=== PATIENT | female | born 1950 | race Caucasian/White ===

== ENCOUNTER 2016-07-27 18:47 | Emergency (ER) | payer OTHER ==
--- NOTE | 2016-07-27 19:28 | C.PDOC ---
History Of Present Illness Patient presents to the ED with complaints of dull, aching chest pain that began yesterday. The patient was seen 2-3 weeks ago for similar symptoms. Patient denies vomiting, diarrhea, or any other complaints at this time. Time Seen by Provider: 07/27/16 19:28 Chief Complaint (Nursing): Chest Pain History Per: Patient History/Exam Limitations: no limitations Onset/Duration Of Symptoms: Hrs Current Symptoms Are (Timing): Still Present Severity: Mild Pain Scale Rating Of: 4 Quality: Dull, Aching Past Medical History Reviewed: Historical Data, Nursing Documentation, Vital Signs Vital Signs: Last Vital Signs Temp 98.1 F 07/27/16 18:53 Pulse 63 07/27/16 21:17 Resp 18 07/27/16 21:17 BP 138/68 07/27/16 21:17 Pulse Ox 100 07/27/16 21:17 - Medical History PMH: Depression, Gastritis, HTN, Hypothyroidism Family History: States: Unknown Family Hx - Social History Hx Alcohol Use: No Hx Substance Use: No - Immunization History Hx Tetanus Toxoid Vaccination: No Hx Influenza Vaccination: Yes Hx Pneumococcal Vaccination: No Review Of Systems Constitutional: Negative for: Fever, Chills, Sweats Cardiovascular: Positive for: Chest Pain (dull, aching ) Respiratory: Negative for: Cough, Shortness of Breath Gastrointestinal: Negative for: Nausea, Vomiting, Abdominal Pain, Diarrhea Physical Exam - Physical Exam Appears: Non-toxic, No Acute Distress Skin: Warm, Dry Neck: Normal ROM, Supple Cardiovascular: Rhythm Regular Respiratory: No Accessory Muscle Use, No Rales, No Rhonchi, No Stridor, No Wheezing Gastrointestinal/Abdominal: Soft, No Tenderness, No Distention, No Guarding, No Rebound Extremity: Normal ROM, No Tenderness Neurological/Psych: Oriented x3 ED Course And Treatment - Laboratory Results Result Diagrams: 07/27/16 20:04 07/27/16 20:04 ECG: Interpreted By Me, Viewed By Me ECG Rhythm: Sinus Rhythm (68), Nonspecific Changes O2 Sat by Pulse Oximetry: 97 Pulse Ox Interpretation: Normal - Radiology CXR: Interpreted by Me, Viewed By Me CXR Interpretation: No: Infiltrates, Fracture, Pnemothorax Progress Note: cardiac work up, asa. I considered the following diagnoses: acute coronary syndrome, pulmonary embolism, lower respiratory infection, aortic dissection/aneurysm, pneumothorax, pericarditis, esophagitis/GERD, zoster and esophageal rupture but found them to be unlikely based on the history , physical exam, and diagnostics. My conclusions regarding the unlikely diagnoses were based on: the absence of significant EKG abnormalities, the lack of suggestive x-ray findings, the absence of significant abnormalities on cardiac monitoring, the absence of asymmetric pulses. Pt feels better and wants to go home Reevaluation Time: 21:48 Reassessment Condition: Improved Medical Decision Making Medical Decision Making: Upon provider reevaluation patient is feeling better, is medically stable, and requires no further treatment in the ED at this time. Patient will be discharged home with Rx for naprosyn and phenergan with codeine . Counseling was provided and all questions were answered regarding diagnosis and need for follow up with the referred clinic. There is agreement to discharge plan. Return if symptoms persist or worsen. Disposition Counseled Patient/Family Regarding: Studies Performed, Diagnosis, Need For Followup - Disposition Referrals: [facility] at [facility] [Outside] Disposition: HOME/ ROUTINE Disposition Time: 19:28 Condition: FAIR Prescriptions: Naproxen [Naprosyn] 1 tab PO BID PRN #25 tab PRN Reason: Pain Promethazine/Codeine [Codeine/Promethazine 10 MG/5 Ml-6.25 MG/5 Ml] 5 ml PO TID #150 ud Instructions: Costochondritis (ED) Print Language: SWEDISH - Clinical Impression Clinical Impression: Costochondral chest pain - Scribe Statement The provider has reviewed the documentation as recorded by the Alvertoibtelly Pineda All medical record entries made by the Alvertoibe were at my direction and personally dictated by me. I have reviewed the chart and agree that the record accurately reflects my personal performance of the history, physical exam, medical decision making, and the department course for this patient. I have also personally directed, reviewed, and agree with the discharge instructions and disposition.
[2016-07-27] MEDS ORDERED: Aspirin 325 mg EC Tablets PO STA (19:31)
[2016-07-27] MEDS ORDERED: Aspirin 325 mg EC Tablets PO ONE (19:35)
[2016-07-27 20:08] LABS: BASO % 0.7 % (0.0-2.0); EOS # 0.1 K/uL (0.0-0.7); EOS % 2.3 % (0.0-4.0); HEMATOCRIT 38.9 % (34.0-47.0); LYMPH # 1.9 K/uL (1.0-4.3); LYMPH % 33.8 % (20.0-40.0); MEAN CELL VOLUME 83.7 fL (81.0-99.0); MEAN CORPUSCULAR HEMOGLOBIN 27.4 pg (27.0-31.0); MEAN CORPUSCULAR HGB CONC 32.7 g/dL (33.0-37.0); MEAN PLATELET VOLUME 9.7 fL (7.2-11.7); MONO # 0.4 K/uL (0.0-0.8); MONO % 7.1 % (0.0-10.0); NRBC % 0.1 % (0.0-2.0); RED CELL DISTRIBUTION WIDTH 14.4 % (11.5-14.5); WHITE BLOOD COUNT 5.7 K/uL (4.8-10.8)
[2016-07-27 20:11] LABS: RBC URINE < 1 /hpf (0-3); URINE BILIRUBIN NEGATIVE (NEGATIVE); URINE BLOOD NEGATIVE (NEGATIVE); URINE COLOR Colorless (YELLOW); URINE GLUCOSE (UA) NORMAL (Normal); URINE KETONE NEGATIVE (NEGATIVE); URINE LEUKOCYTE ESTERASE NEG Leu/uL (Negative); URINE PROTEIN NEGATIVE (NEGATIVE); URINE UROBILINOGEN NORMAL mg/dL (0.2-1.0); WBC URINE 1 /hpf (0-5)
[2016-07-27 20:15] LABS: CHLORIDE 102 mmol/L (98-107); INR 1.9
[2016-07-27 20:16] LABS: POTASSIUM 4.2 mmol/L (3.6-5.2); SODIUM 140 mmol/L (132-148)
[2016-07-27 20:18] LABS: ALB/GLOB RATIO 1.5 (1.0-2.1); AST/SGOT 24 U/L (14-36); BILIRUBIN,TOTAL 0.5 mg/dL (0.2-1.3); CARBON DIOXIDE 25 mmol/L (22-30); GFR AFRICAN-AMERICAN > 60; TOTAL PROTEIN 7.8 g/dL (6.3-8.3)
[2016-07-27 20:19] LABS: ALKALINE PHOSPHATASE 92 U/L (38-126); ALT/SGPT 19 U/L (9-52); BLOOD UREA NITROGEN 11 mg/dL (7-17); GLUCOSE,RANDOM 94 mg/dL (65-105)
[2016-07-27 21:18] VITALS: RESP 18
[2016-07-27 22:09] VITALS: BP 142/73; PULSE 62; TEMP 97.9; O2SAT 99
--- NOTE | 2016-07-28 08:22 | RAD ---
PROCEDURE: CHEST RADIOGRAPH, 1 VIEW HISTORY: chest pain COMPARISON: 06/18/2016 FINDINGS: LUNGS: Mild venous congestion. PLEURA: No pneumothorax or pleural fluid seen. CARDIOVASCULAR: Calcification at the aortic knob. OSSEOUS STRUCTURES: Calcific tendinopathy of the left proximal humerus. VISUALIZED UPPER ABDOMEN: Normal. OTHER FINDINGS: None. IMPRESSION: Mild venous congestion.
--- NOTE | 2016-07-29 07:57 | CARD ---
APPROVED REPORT EKG Measurement Heart [id number] CO 134P7 [id number] <Conclusion> Normal sinus rhythm Nonspecific ST abnormality Abnormal ECG
== END 2016-07-27 22:09 | disposition home or self-care (01) ==
LOC: C.ER 18:47
DX: R07.89 Other chest pain (principal)
CPT/HCPCS: 71010; 80053; 81001; 84484; 85025; 85610; 85730; 93005; 96374; 99285; J1885

== ENCOUNTER 2016-12-22 12:25 | Emergency (ER) | payer OTHER ==
[2016-12-22 12:25] VITALS: BMI 29.0
[2016-12-22 12:37] VITALS: BP 106/63; PULSE 61; TEMP 98.6; O2SAT 98
[2016-12-22 13:16] VITALS: RESP 18
--- NOTE | 2016-12-22 13:24 | C.PDOC ---
History Of Present Illness 66 y/o female, with PMHx of HTN, presents to ED for evaluation of mild frontal headache for the last 3 days. Pt states her sugar level was mildly high at home. (+) nausea. Otherwise, denies any vomiting, visual changes, dizziness, or other complaints at this time. Time Seen by Provider: 12/22/16 13:00 Chief Complaint (Nursing): Headache History Per: Patient History/Exam Limitations: no limitations Onset/Duration Of Symptoms: Days (3) Current Symptoms Are (Timing): Still Present Quality: Aching Preceeding Symptoms: denies: Visual Disturbances, Known Migraine Symptoms Associated Symptoms: denies: Photophobia, Blurred Vision, Nausea, Vomiting, Extremity Weakness Recent travel outside of the [place]: No Additional History Per: Patient Past Medical History Reviewed: Historical Data, Nursing Documentation, Vital Signs Vital Signs: Last Vital Signs Temp 98.6 F 12/22/16 12:35 Pulse 61 12/22/16 12:35 Resp 18 12/22/16 13:15 BP 106/63 12/22/16 12:35 Pulse Ox 98 12/22/16 13:26 - Medical History PMH: Depression, Gastritis, HTN, Hypothyroidism Family History: States: Unknown Family Hx - Social History Hx Alcohol Use: No Hx Substance Use: No - Immunization History Hx Tetanus Toxoid Vaccination: No Hx Influenza Vaccination: Yes Hx Pneumococcal Vaccination: No Review Of Systems Except As Marked, All Systems Reviewed And Found Negative. Constitutional: Negative for: Fever, Chills Eyes: Negative for: Vision Change Cardiovascular: Negative for: Chest Pain, Palpitations, Light Headedness Respiratory: Negative for: Cough, Shortness of Breath Gastrointestinal: Positive for: Nausea. Negative for: Vomiting, Abdominal Pain Musculoskeletal: Negative for: Neck Pain Neurological: Positive for: Headache. Negative for: Weakness, Numbness, Change in Speech, Dizziness Physical Exam - Physical Exam Appears: Non-toxic, No Acute Distress Skin: Normal Color, Warm, Dry Head: Atraumatic, Normacephalic Eye(s): bilateral: Normal Inspection Neck: Normal, Normal ROM, Supple Chest: Symmetrical Cardiovascular: Rhythm Regular, No Murmur Respiratory: Normal Breath Sounds, No Rales, No Rhonchi, No Wheezing Gastrointestinal/Abdominal: Soft, No Tenderness Extremity: Bilateral: Atraumatic, Normal ROM Neurological/Psych: Oriented x3, Normal Speech, Normal Cognition ED Course And Treatment O2 Sat by Pulse Oximetry: 98 (on RA) Pulse Ox Interpretation: Normal Medical Decision Making Medical Decision Making: On assessment, patient denies any type of work up. Pt eloped from the ER several minutes later after assessment. Disposition - Disposition Disposition: ELOPEMENT - ER ONLY Disposition Time: 01:30 Condition: UNKNOWN Forms: [facility] (Cymro) - Clinical Impression Clinical Impression: Headache - Scribe Statement The provider has reviewed the documentation as recorded by the Scribtelly Lazo All medical record entries made by the Alvertoibtelly were at my direction and personally dictated by me. I have reviewed the chart and agree that the record accurately reflects my personal performance of the history, physical exam, medical decision making, and the department course for this patient. I have also personally directed, reviewed, and agree with the discharge instructions and disposition.
== END 2016-12-22 13:16 | disposition left against medical advice (07) ==
LOC: C.ER 12:25
DX: R51 Headache (principal)

== ENCOUNTER 2017-01-20 12:33 | Emergency (ER) | payer OTHER, SELFPAY ==
[2017-01-20 12:33] VITALS: BMI 29.0
[2017-01-20 12:59] VITALS: RESP 18
--- NOTE | 2017-01-20 14:14 | C.PDOC ---
History Of Present Illness 66 yo female presents to ED for evaluation of a pruritic rash starting yesterday. She reports taking Benadryl yesterday with no relief. Patient denies any new exposures to allergens such as foods, clothing, creams/shampoos, etc. She states she was with her daughter yesterday who has a lot of cats, but she has been in that environment before without a reaction. She denies fever , shortness of breath, palpitations, sensation of throat closing up, drooling. Time Seen by Provider: 01/20/17 13:05 Chief Complaint (Nursing): Abnormal Skin Integrity History Per: Patient History/Exam Limitations: no limitations Onset/Duration Of Symptoms: Days (1) Current Symptoms Are (Timing): Still Present Quality Of Symptoms: Itching Severity: Mild Past Medical History Reviewed: Historical Data, Nursing Documentation, Vital Signs Vital Signs: Last Vital Signs Temp 98.4 F 01/20/17 14:53 Pulse 71 01/20/17 14:53 Resp 18 01/20/17 14:53 BP 114/69 01/20/17 14:53 Pulse Ox 99 01/20/17 14:53 - Medical History PMH: Depression, Gastritis, HTN, Hypercholesterolemia, Hypothyroidism Surgical History: No Surg Hx Family History: States: No Known Family Hx - Social History Hx Alcohol Use: No Hx Substance Use: No - Immunization History Hx Tetanus Toxoid Vaccination: No Hx Influenza Vaccination: Yes Hx Pneumococcal Vaccination: No Review Of Systems Except As Marked, All Systems Reviewed And Found Negative. Constitutional: Negative for: Fever Cardiovascular: Negative for: Chest Pain, Palpitations Respiratory: Negative for: Cough, Shortness of Breath Gastrointestinal: Negative for: Nausea, Vomiting, Abdominal Pain, Diarrhea Genitourinary: Negative for: Dysuria, Hematuria Skin: Positive for: Rash Physical Exam - Physical Exam Appears: Well, Non-toxic, No Acute Distress Skin: Rash (diffuse, raised urticarial rash, sparing palms and soles) Eye(s): bilateral: Normal Inspection Oral Mucosa: Moist Tongue: Normal Appearing, No Swelling, No Lesions Lips: Normal Appearing, No Swelling Throat: Normal, No Erythema, No Exudate, No Drooling Neck: Normal, Supple Cardiovascular: Rhythm Regular Respiratory: Normal Breath Sounds, No Rales, No Rhonchi, No Wheezing Neurological/Psych: Oriented x3 ED Course And Treatment O2 Sat by Pulse Oximetry: 99 (RA) Pulse Ox Interpretation: Normal Progress Note: Patient given PO Prednisone, Pepcid and Benadryl. Reevaluation Time: 14:40 Reassessment Condition: Improved (Patient reassessed, states she is feeling better and rash has improved. Rxs for prednisone, tessalon (patient requesting cough medication) and benadryl. She was instructed to follow up with PMD/ clinic in 1-2 days, and she understands she should return to ED if symptoms worsen.) Disposition Counseled Patient/Family Regarding: Studies Performed, Diagnosis, Need For Followup, Rx Given - Disposition Referrals: [facility] [Outside] Disposition: HOME/ ROUTINE Disposition Time: 14:40 Condition: STABLE Additional Instructions: SEGUIMIENTO CON COBIAN MDICO EN 1-2 CABRERA USE MEDICAMENTOS SEGN LO DIRIGIDO DEVUELVA A LA FERNANDO DE EMERGENCIA SI LOS SNTOMAS EMPEORARAN Prescriptions: Benzonatate [Tessalon Perles] 100 mg PO BID PRN #15 sgl PRN Reason: Cough DiphenhydrAMINE [Benadryl] 25 mg PO Q6 PRN #20 cap PRN Reason: Itching / Pruritus predniSONE [predniSONE Tab] 40 mg PO DAILY #8 tab Instructions: Urticaria (ED) Forms: [facility] [facility] (Canadian) Print Language: INDONESIAN - Clinical Impression Clinical Impression: Urticaria, Allergic reaction - Scribe Statement The provider has reviewed the documentation as recorded by the Grady Jones Provider Attestation: All medical record entries made by the Alvertoibe were at my direction and personally dictated by me. I have reviewed the chart and agree that the record accurately reflects my personal performance of the history, physical exam, medical decision making, and the department course for this patient. I have also personally directed, reviewed, and agree with the discharge instructions and disposition.
[2017-01-20 14:55] VITALS: BP 114/69; PULSE 71; TEMP 98.4
[2017-01-25 14:32] VITALS: O2SAT 99
== END 2017-01-20 14:55 | disposition home or self-care (01) ==
LOC: C.ER 12:33
DX: L50.0 Allergic urticaria (principal)

== ENCOUNTER 2018-01-08 12:51 | Emergency (ER) | payer SELFPAY ==
[2018-01-08 13:03] VITALS: BMI 26.4
[2018-01-08] MEDS ORDERED: Alum-Mag Hydrox-Simethicone Susp (30 mL) PO STA (13:41)
[2018-01-08] MEDS ORDERED: Sodium Chloride 0.9% 1,000 ML IV STA (13:41)
--- NOTE | 2018-01-08 14:01 | C.PDOC ---
History Of Present Illness 67 y/o F p/w body aches, cough, sore throat x 1 week. Reports associated cough. Denies fever, dyspnea, chest pain, vomiting, recent travel, sick contacts, leg swelling. Taking ibuprofen at home, last took 2 days ago. Time Seen by Provider: 01/08/18 13:12 Chief Complaint (Nursing): Abdominal Pain Past Medical History Vital Signs: Last Vital Signs Temp 98.6 F 01/08/18 13:04 Pulse 56 L 01/08/18 13:04 Resp 18 01/08/18 13:30 BP 123/77 01/08/18 13:04 Pulse Ox 98 01/08/18 13:04 - Medical History PMH: Depression, Gastritis, HTN, Hypercholesterolemia, Hypothyroidism Family History: States: Unknown Family Hx - Social History Hx Alcohol Use: No Hx Substance Use: No - Immunization History Hx Tetanus Toxoid Vaccination: No Hx Influenza Vaccination: No Hx Pneumococcal Vaccination: No Review Of Systems Except As Marked, All Systems Reviewed And Found Negative. Cardiovascular: Negative for: Chest Pain Respiratory: Negative for: Shortness of Breath Physical Exam - Physical Exam Additional Physical Exam Comments: Constitutional: No acute distress. Head: Normocephalic. Atraumatic. Eyes: PERRL. ENT: Moist mucous membranes. Neck: Supple. Cardiovascular: Regular rate. Radial pulse 2+ bilaterally. Chest: No tenderness. Respiratory: Clear to auscultation bilaterally. GI: Soft. Nontender. Nondistended. Back: No CVA tenderness. Musculoskeletal: No tenderness or swelling of extremities. Skin: No rash. Neurologic: Alert, no focal deficit. ED Course And Treatment - Laboratory Results Result Diagrams: 01/08/18 14:14 01/08/18 14:14 O2 Sat by Pulse Oximetry: 98 Medical Decision Making Medical Decision Making: EKG Sinus rhythm, 54 bpm, very small ST elevations in inferior leads without any reciprocal changes, no change from previous EKG. CXR IMPRESSION: No focal consolidation, significant pleural effusion, or definite pneumothorax identified. Patient feels better. Discharged home, f/u PMD, return to ED for worsening pain, dyspnea, vomiting, or any other problem. Disposition - Disposition Disposition: HOME/ ROUTINE Disposition Time: 15:11 Condition: STABLE Prescriptions: Famotidine/Ca Carb/Mag Hydrox [Pepcid Complete Tablet Chew] 1 each PO BID #28 tab.chew Ibuprofen [Motrin] 1 tab PO Q6 #30 tab Instructions: Viral Syndrome (DC) Forms: [employer] (Croatian) - Clinical Impression Clinical Impression: Influenza-like symptoms
[2018-01-08 14:18] LABS: BASO # 0.1 K/uL (0.0-0.2); BASO % 1.5 % (0.0-2.0); EOS # 0.2 K/uL (0.0-0.7); EOS % 5.6 % (0.0-4.0); HEMOGLOBIN 12.1 g/dL (11.0-16.0); LYMPH # 1.1 K/uL (1.0-4.3); LYMPH % 25.4 % (20.0-40.0); MEAN CELL VOLUME 89.2 fL (81.0-99.0); MEAN CORPUSCULAR HEMOGLOBIN 30.6 pg (27.0-31.0); MEAN CORPUSCULAR HGB CONC 34.3 g/dL (33.0-37.0); MEAN PLATELET VOLUME 10.2 fL (7.2-11.7); MONO # 0.4 K/uL (0.0-0.8); MONO % 8.8 % (0.0-10.0); NEUT # 2.5 K/uL (1.8-7.0); NEUT % 58.7 % (50.0-75.0); RBC 3.95 Mil/uL (3.80-5.20); RED CELL DISTRIBUTION WIDTH 14.2 % (11.5-14.5); WHITE BLOOD COUNT 4.3 K/uL (4.8-10.8)
[2018-01-08] MEDS ORDERED: Aluminum Hydroxide/Magnesium Hydroxide Susp (30 mL) ONE (14:20)
[2018-01-08 14:32] LABS: ALB/GLOB RATIO 1.4 (1.0-2.1); BLOOD UREA NITROGEN 11 mg/dL (7-17); GFR NON-AFRICAN AMERICAN > 60; LIPASE 94 U/L (23-300)
--- NOTE | 2018-01-08 14:32 | RAD ---
HISTORY: cough COMPARISON: Chest x-ray performed 07/27/16 TECHNIQUE: Chest PA and lateral FINDINGS: LUNGS: No focal consolidation. Please note that chest x-ray has limited sensitivity for the detection of pulmonary masses. PLEURA: No significant pleural effusion identified. No definite pneumothorax . CARDIOVASCULAR: Heart size appears within normal limits. Atherosclerotic calcifications of the aorta. OSSEOUS STRUCTURES: Degenerative changes. VISUALIZED UPPER ABDOMEN: Unremarkable. OTHER FINDINGS: None. IMPRESSION: No focal consolidation, significant pleural effusion, or definite pneumothorax identified.
[2018-01-08 14:40] LABS: SQUAMOUS EPITHIAL 1 /hpf (0-5); URINE BILIRUBIN NEGATIVE (NEGATIVE); URINE BLOOD NEGATIVE (NEGATIVE); URINE CLARITY Clear (Clear); URINE COLOR Yellow (YELLOW); URINE GLUCOSE (UA) 3+ mg/dL (Normal); URINE LEUKOCYTE ESTERASE NEG Leu/uL (Negative); URINE PROTEIN NEGATIVE (NEGATIVE)
[2018-01-08 14:40] LABS: ALT/SGPT 20 U/L (9-52); AST/SGOT 35 U/L (14-36)
[2018-01-08 15:43] VITALS: BP 118/55; PULSE 52; RESP 14; TEMP 97.9; O2SAT 97
--- NOTE | 2018-01-11 10:09 | CARD ---
APPROVED REPORT Date of service: 01/08/2018 EKG Measurement Heart [id number] MI 146P14 [id number] <Conclusion> Sinus bradycardia ST elevation, consider inferior injury or acute infarct ACUTE LA / STEMI Abnormal ECG
== END 2018-01-08 15:43 | disposition home or self-care (01) ==
LOC: C.ER 12:51
DX: J11.1 Influenza due to unidentified influenza virus with other respiratory manifestations (principal)
CPT/HCPCS: 71046; 80053; 81001; 83690; 85025; 87804; 93005; 96361; 96374; 96375; 99285; J1885; J2405; J7030

== ENCOUNTER 2018-04-19 09:25 | Outpatient (CLI) | payer SELFPAY | END 2018-04-19 09:26 | disposition home or self-care (01) | LOC: C.CARD 09:25 ==

== ENCOUNTER 2018-07-25 15:27 | Emergency (ER) | payer SELFPAY ==
[2018-07-25 15:27] VITALS: BMI 26.4
--- NOTE | 2018-07-25 15:59 | C.PDOC ---
History Of Present Illness 68 y/o female presents to ED with chief complaint of dizziness. Patient, with history of diabetes and vertigo in the past, complains that the room was spinning around this morning. Patient also complains of feeling nauseous but denies any vomiting. Also denies chest pain, headache, or fever. Time Seen by Provider: 07/25/18 15:54 Chief Complaint (Nursing): Dizziness/Lightheaded History Per: Patient History/Exam Limitations: no limitations Onset/Duration Of Symptoms: Hrs Current Symptoms Are (Timing): Still Present Past Medical History Reviewed: Historical Data, Nursing Documentation, Vital Signs Vital Signs: Last Vital Signs Temp 98.5 F 07/25/18 15:29 Pulse 66 07/25/18 15:29 Resp 20 07/25/18 15:29 BP 144/68 07/25/18 15:29 Pulse Ox 99 07/25/18 15:29 - Medical History PMH: Depression, Diabetes, Gastritis, HTN, Hypercholesterolemia, Hypothyroidism Family History: States: No Known Family Hx - Social History Hx Tobacco Use: No Hx Alcohol Use: No Hx Substance Use: No - Immunization History Hx Tetanus Toxoid Vaccination: No Hx Influenza Vaccination: No Hx Pneumococcal Vaccination: No Review Of Systems Except As Marked, All Systems Reviewed And Found Negative. Constitutional: Negative for: Fever Cardiovascular: Negative for: Chest Pain Gastrointestinal: Positive for: Nausea. Negative for: Vomiting Neurological: Positive for: Dizziness. Negative for: Headache Physical Exam - Physical Exam Appears: Non-toxic, No Acute Distress Skin: Warm, Dry Head: Atraumatic, Normacephalic Eye(s): bilateral: Normal Inspection Oral Mucosa: Moist Neck: Supple Cardiovascular: Rhythm Regular, No Murmur Respiratory: Normal Breath Sounds, No Rales, No Rhonchi, No Wheezing Gastrointestinal/Abdominal: Soft, No Tenderness Extremity: Bilateral: Atraumatic, Normal Color And Temperature, Normal ROM Neurological/Psych: Oriented x3, Normal Speech, Normal Cognition ED Course And Treatment - Laboratory Results Result Diagrams: 07/25/18 16:21 07/25/18 16:21 ECG: Interpreted By Me, Viewed By Me ECG Rhythm: Sinus Bradycardia Interpretation Of ECG: No ST elevation. QT normal. Rate From EC O2 Sat by Pulse Oximetry: 99 (RA) Pulse Ox Interpretation: Normal - CT Scan/US Head CT Other Rad Studies (CT/US): Read By Radiologist, Radiology Report Reviewed CT/US Interpretation: FINDINGS: HEMORRHAGE: No intracranial hemorrhage. BRAIN: No mass effect or edema. No atrophy or chronic microvascular ischemic changes. VENTRICLES: Unremarkable. No hydrocephalus. CALVARIUM: Unr emarkable. PARANASAL SINUSES: Unremarkable as visualized. No significant inflammatory changes. MASTOID AIR CELLS: Unremarkable as visualized. No inflammatory changes. OTHER FINDINGS: None. IMPRESSION: No acute intracranial abnormality. If symptoms persists, consider correlation with MRI. Medical Decision Making Medical Decision Making: Plan: --Head CT --EKG --Labs --Antivert 25 mg PO --Zofran 4 mg IVP 17:32 Dizziness resolved. Patient is feeling much better. Disposition Counseled Patient/Family Regarding: Diagnosis, Need For Followup, Rx Given - Disposition Referrals: Laura Dimas MD [Staff Provider] - Disposition: HOME/ ROUTINE Disposition Time: 17:30 Condition: STABLE Prescriptions: Meclizine [Meclizine*] 25 mg PO Q6 #30 tab Ondansetron ODT [Zofran ODT] 4 mg PO TID #10 odt Instructions: Vertigo (a Type of Dizziness) Forms: [employer] (Namibian) Print Language: AZERI - POA Present On Arrival: None - Clinical Impression Clinical Impression: Dizziness - Scribe Statement The provider has reviewed the documentation as recorded by the Grady Douglas Provider Attestation: All medical record entries made by the Grady were at my direction and personally dictated by me. I have reviewed the chart and agree that the record accurately reflects my personal performance of the history, physical exam, medical decision making, and the department course for this patient. I have also personally directed, reviewed, and agree with the discharge instructions and disposition.
[2018-07-25 16:25] LABS: BASO # 0.1 K/uL (0.0-0.2); EOS % 0.8 % (0.0-4.0); HEMOGLOBIN 12.7 g/dL (11.0-16.0); LYMPH # 1.6 K/uL (1.0-4.3); LYMPH % 27.3 % (20.0-40.0); MEAN CELL VOLUME 90.1 fL (81.0-99.0); MEAN CORPUSCULAR HEMOGLOBIN 30.2 pg (27.0-31.0); MEAN CORPUSCULAR HGB CONC 33.6 g/dL (33.0-37.0); MEAN PLATELET VOLUME 8.9 fL (7.2-11.7); MONO # 0.3 K/uL (0.0-0.8); MONO % 5.8 % (0.0-10.0); NEUT # 3.7 K/uL (1.8-7.0); NEUT % 65.1 % (50.0-75.0); RBC 4.21 Mil/uL (3.80-5.20); RED CELL DISTRIBUTION WIDTH 13.9 % (11.5-14.5); WHITE BLOOD COUNT 5.8 K/uL (4.8-10.8)
[2018-07-25 16:50] LABS: ALB/GLOB RATIO 1.6 (1.0-2.1); ALBUMIN 4.1 g/dL (3.5-5.0); ALT/SGPT 17 U/L (9-52); AST/SGOT 26 U/L (14-36); BLOOD UREA NITROGEN 11 mg/dL (7-17); CALCIUM 9.1 mg/dl (8.6-10.4); GFR NON-AFRICAN AMERICAN > 60
--- NOTE | 2018-07-25 17:17 | CT ---
Date of service: 07/25/2018 PROCEDURE: CT HEAD WITHOUT CONTRAST. HISTORY: Headache. COMPARISON: 06/19/2016 TECHNIQUE: Axial computed tomography images were obtained through the head/brain without intravenous contrast. Radiation dose: Total exam DLP = 953.67 mGy-cm. This CT exam was performed using one or more of the following dose reduction techniques: Automated exposure control, adjustment of the mA and/or kV according to patient size, and/or use of iterative reconstruction technique. FINDINGS: HEMORRHAGE: No intracranial hemorrhage. BRAIN: No mass effect or edema. No atrophy or chronic microvascular ischemic changes. VENTRICLES: Unremarkable. No hydrocephalus. CALVARIUM: Unremarkable. PARANASAL SINUSES: Unremarkable as visualized. No significant inflammatory changes. MASTOID AIR CELLS: Unremarkable as visualized. No inflammatory changes. OTHER FINDINGS: None. IMPRESSION: No acute intracranial abnormality. If symptoms persists, consider correlation with MRI.
[2018-07-25 17:56] VITALS: BP 136/82; PULSE 68; RESP 18; TEMP 98.4
[2018-07-25 18:45] VITALS: O2SAT 99
--- NOTE | 2018-07-26 15:07 | CARD ---
APPROVED REPORT Date of service: 07/25/2018 EKG Measurement Heart [id number] DC 142P32 [id number] <Conclusion> Sinus bradycardia Otherwise normal ECG
== END 2018-07-25 17:56 | disposition home or self-care (01) ==
LOC: C.ER 15:27
DX: R42 Dizziness and giddiness (principal)
CPT/HCPCS: 70450; 80053; 82948; 85025; 93005; 96374; 99285; J2405